=== PATIENT | male | born 1965 | race Two or more races ===

== ENCOUNTER 2020-01-11 18:09 | Emergency (ER) | payer SELFPAY ==
[~2020-01-11] VITALS: Ht 152.4 cm; Wt 68.0 kg
[2020-01-11 18:20] VITALS: BP 144/84
[2020-01-11] MEDS ORDERED: Tetanus/Diptheria/Pertussis IM ONE (18:30)
[2020-01-11] MEDS ORDERED: Lidocaine 1% 10mg/ml/EPI 0.01mg/ml 30ml INJ ONE (18:30)
--- NOTE | 2020-01-11 18:36 | Emergency Room Report ---
History of Present Illness General Chief Complaint: Laceration Source: Patient Present Illness HPI 54-year-old male with no past medical history presents with a laceration to his right hand 1 hour prior to arrival. 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 There was immediate bleeding which he applied pressure to. Patient is right-hand dominant. Unknown last tetanus shot. No other injuries. 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: No Patient History Past Medical History: see triage record Reviewed Nursing Documentation: PMH: Agreed; PSxH: Agreed Nursing Documentation-PMH Past Medical History: No Stated History Review of Systems All Other Systems: negative except mentioned in HPI Physical Exam Vital Signs Date Time Temp Pulse Resp B/P (MAP) Pulse Ox O2 Delivery O2 Flow Rate FiO2 01/11/20 18:18 98.8 119 18 144/84 (104) 99 Room Air Sp02 EP Interpretation: reviewed, normal General Appearance: normal inspection, well appearing, no apparent distress, alert, GCS 15, non-toxic ENT: EOM grossly intact, normal pharynx, normal voice, TMs + canals normal, uvula midline Neck: normal inspection, full range of motion, supple, thyroid normal, no meningismus, no bony tend Respiratory: chest non-tender, lungs clear, normal breath sounds, no respiratory distress Cardiovascular #1: normal peripheral pulses, regular rate, rhythm Cardiovascular #2: 2+ radial (R), 2+ radial (L) Musculoskeletal: normal inspection, normal range of motion, gait/station normal , non-tender Neurologic: alert, motor strength/tone normal, boat joiner III-XII nml as tested, oriented x3, sensory intact, speech normal Psychiatric: judgement/insight normal, mood/affect normal Skin: other - 2.5 cm laceration to the ulnar aspect of the right hand. Adipose tissue visualized. No bone or foreign body visualized. Motor intact. Sensation intact. Pulses intact. Bleeding controlled. Lymphatic: no adenopathy Procedures Laceration/Wound Repair Laceration/Wound Repair : Consent: Verbal Wound Location: upper extremity Wound's Depth, Shape: superficial Wound Length (cm): 2 Wound Explored: no foreign body removed Irrigated w/ Saline (ccs): 20 Betadine Prep?: Yes Anesthesia: Lidocaine w/ Epi Volume Anesthetic (ccs): 4 Wound Debrided: None Wound Repaired With: sutures Suture Size/Type: 5:0, proline Number of Sutures: 8 Sterile Dressing Applied?: Yes Splint Applied?: No Patient Tolerated: Well Complications: None Medical Decision Making PA Attestation Dr. Ch is my supervising physician whom patient management and care has been discussed with. Diagnostic Impression: Primary Impression: Laceration ER Course Pt. presents to the ED c/o laceration to the right hand prior to arrival. Ddx considered but are not limited to laceration, foreign body, fracture. Vital signs: are WNL, pt. is afebrile H&PE are most consistent with superficial laceration ORDERS: Right hand x-ray shows no fracture or foreign body ED INTERVENTIONS: Tetanus shot given. Laceration repaired with no complications. DISCHARGE: At this time pt. is stable for d/c to home. Advised to return in 2 days for recheck and 2 weeks for suture removal. Will provide printed patient care instructions, and any necessary prescriptions. Advised to follow up outpatient in 1-2 days. Care plan and follow up instructions have been discussed with the patient prior to discharge. Other X-Ray Diagnostic Results Other X-Ray Diagnostic Results : X-Ray ordered: Right hand # of Views/Limited Vs Complete: 1 View Indication: Pain PA Xray: Interpretation reviewed, by supervising MD, and agrees with findings. Interpretation: no dislocation, no fractures, other - No foreign body. Impression: Other - No fracture or foreign body. Last Vital Signs Date Time Temp Pulse Resp B/P (MAP) Pulse Ox O2 Delivery O2 Flow Rate FiO2 01/11/20 18:18 98.8 119 18 144/84 (104) 99 Room Air Rosemary Gomez January 11, 2020 18:36
[2020-01-11 19:35] VITALS: BP 144/84
--- NOTE | 2020-01-12 10:16 | Diagnostic Imaging Report ---
EXAM: X-RAY XRAY Hand Complete R CLINICAL HISTORY: Trauma with hand pain. COMPARISON: None FINDINGS: Total of 3 views of the right hand were obtained. Alignment is anatomic. There is no fracture, bony lesions or erosions. Joint spaces are unremarkable. Surrounding soft tissue is normal. IMPRESSION: NO FRACTURE.
== END 2020-01-11 19:35 | disposition home or self-care (01) ==
LOC: EMR 18:59
DX: S61.411A Laceration without foreign body of right hand, initial encounter (principal); W26.0XXA Contact with knife, initial encounter; Y93.89 Activity, other specified; Y92.810 Car as the place of occurrence of the external cause
CPT/HCPCS: 90471; 90715; 99283

== ENCOUNTER 2020-01-14 13:54 | Emergency (ER) | payer SELFPAY ==
[~2020-01-14] VITALS: Ht 160 cm; Wt 68.0 kg
--- NOTE | 2020-01-14 14:12 | NUR ---
ED Nurse Note: pt presents to ED asking for evaluation of R hand sutures. pt states that sutures were placed 4 days ago for a lac repair and pt was told to return in 3 days for re-evaluation.
[2020-01-14 14:13] VITALS: BP 132/79
[2020-01-14] MEDS ORDERED: CEPHALEXIN500 MG ORAL (14:32)
[2020-01-14] MEDS ORDERED: BACITRACIN15 GM TOPIC (14:32)
[2020-01-14 14:44] VITALS: BP 132/79
--- NOTE | 2020-01-14 14:44 | NUR ---
ER DISCHARGE NOTE: Patient is cleared to be discharged per ERMD, pt is aox4, on room air, with stable vital signs. pt was given dc and prescription instructions, pt was able to verbalize understanding, pt id band removed without complications. pt is able to ambulate with steady gait. pt took all belongings.
--- NOTE | 2020-01-14 14:46 | Emergency Room Report ---
History of Present Illness General Chief Complaint: Wound Recheck/Suture Removal Source: Patient Present Illness HPI 54-year-old male presents to the emergency department for wound recheck status post suture placement. Patient sustained a laceration to the lateral aspect of the right hand 3 days ago. Patient denies increase in pain he reports some mild erythema. Patient denies fever chills. Patient reports that he was not prescribed any antibiotics upon discharge. Patient states he did receive his tetanus vaccination. He denies additional trauma or bleeding. He denies discharge. No other aggravating or relieving factors at this time. Allergies: Coded Allergies: No Known Allergies (Unverified , 01/11/20) COVID-19 Screening Contact w/high risk pt: No Recent Travel to affected area: No Experienced COVID-19 symptoms?: No COVID-19 Testing performed ANALYTICS SPECIALIST: No Patient History Past Medical History: see triage record Past Surgical History: none Pertinent Family History: none Immunizations: UTD Reviewed Nursing Documentation: PMH: Agreed; PSxH: Agreed Nursing Documentation-PMH Past Medical History: No Stated History Review of Systems All Other Systems: negative except mentioned in HPI Physical Exam Vital Signs Date Time Temp Pulse Resp B/P (MAP) Pulse Ox O2 Delivery O2 Flow Rate FiO2 01/14/20 14:08 97.9 98 18 132/79 (96) 99 Room Air Sp02 EP Interpretation: reviewed, normal General Appearance: well appearing, no apparent distress, alert, GCS 15, non- toxic Head: normocephalic, atraumatic Eyes: bilateral eye normal inspection, bilateral eye PERRL ENT: hearing grossly normal, normal voice Neck: full range of motion Respiratory: lungs clear, normal breath sounds, speaking full sentences Cardiovascular #1: regular rate, rhythm, normal capillary refill Musculoskeletal: normal range of motion, gait/station normal, non-tender Neurologic: alert, motor strength/tone normal, oriented x3, sensory intact, responsive, speech normal Psychiatric: judgement/insight normal Skin: no rash, wd healing/no infection noted - healing previously repaired 2cm Right hand laceration- mild erythema Medical Decision Making PA Attestation Dr. Velasquez is my supervising Physician whom patient management has been discussed with. Diagnostic Impression: Primary Impression: Encounter for wound re-check ER Course 54-year-old male presents to the emergency department for wound recheck status post suture placement. Patient sustained a laceration to the lateral aspect of the right hand 3 days ago. Patient denies increase in pain he reports some mild erythema. Patient denies fever chills. Patient reports that he was not prescribed any antibiotics upon discharge. Patient states he did receive his tetanus vaccination. He denies additional trauma or bleeding. He denies discharge. No other aggravating or relieving factors at this time. Ddx considered but are not limited to cellulitis, abscess, dehiscence Vital signs: are WNL, pt. is afebrile H&PE are most consistent with healing previously repaired 2cm Right hand laceration ORDERS: none required at this time, the diagnosis is clinical ED INTERVENTIONS: -wound examined -Sterile dressing applied. d/w pt. to begin taking po abx and to look for signs of infection . DISCHARGE: At this time pt. is stable for d/c to home. Will provide printed patient care instructions, and any necessary prescriptions. Care plan and follow up instructions have been discussed with the patient prior to discharge. Last Vital Signs Date Time Temp Pulse Resp B/P (MAP) Pulse Ox O2 Delivery O2 Flow Rate FiO2 01/14/20 14:13 89 18 132/79 99 Room Air 01/14/20 14:08 97.9 Disposition: HOME, SELF-CARE Condition: Stable Scripts Bacitracin (Bacitracin) 28.4 Gm Oint...g. 1 APPLIC TOPIC THREE TIMES A DAY, #28.4 GM Prov: Seema Rader 01/14/20 Cephalexin* (KEFLEX*) 500 Mg Capsule 500 MG ORAL EVERY 12 HOURS for 7 Days, #14 CAP 0 Refills Prov: Seema Rader 01/14/20 Referrals: Anne Marie Boggs [facility] + [facility] - Peds ER - Patient Instructions: Wound Check Additional Instructions: regresar en 14 epstein para quitar los puntos. Si tiene un doctor primario, va enrique doctor primario. regresar pronto si tiene termeratura, valeriy, mas dolor. Take medications as directed. Follow up with a Primary Care Provider in 3-5 days, even if your symptoms have resolved. --Please review list of primary care clinics, if you do not already have a primary care provider Return sooner to ED if new symptoms occur, or current symptoms become worse. - Please note that this Emergency Department Report was dictated using [employer] hydrographic technology software, occasionally this can lead to erroneous entry secondary to interpretation by the dictation equipment. Seema Rader January 14, 2020 14:46
== END 2020-01-14 15:00 | disposition home or self-care (01) ==
LOC: EMR 15:00
DX: S61.411A Laceration without foreign body of right hand, initial encounter (principal); X58.XXXA Exposure to other specified factors, initial encounter; Y92.9 Unspecified place or not applicable
CPT/HCPCS: 99282

== ENCOUNTER 2020-01-30 12:47 | Emergency (ER) | payer SELFPAY ==
[~2020-01-30] VITALS: Ht 167.6 cm; Wt 72.6 kg
[~2020-01-30 12:47] MED LIST: BACITRACIN15 GM TOPIC; CEPHALEXIN500 MG ORAL
--- NOTE | 2020-01-30 13:10 | NUR ---
ED Nurse Note: Patient walked in to ER from home due to sutures removal.
--- NOTE | 2020-01-30 13:31 | Emergency Room Report ---
History of Present Illness General Chief Complaint: Wound Recheck/Suture Removal Source: Patient Present Illness HPI 54-year-old male with no symptom past medical history here requesting suture removal. Sutures were placed in 2 weeks ago at [place] [facility]. Denies any pus drainage, new onset injury. Reports that he has been having some tingling since this happened however has not follow-up primary doctor yet. Patient was advised to follow with primary doctor in this regard. 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: No Patient History Past Medical History: see triage record Past Surgical History: none Pertinent Family History: none Immunizations: UTD Reviewed Nursing Documentation: PMH: Agreed; PSxH: Agreed Nursing Documentation-PMH Past Medical History: No Stated History Review of Systems All Other Systems: negative except mentioned in HPI Physical Exam Vital Signs Date Time Temp Pulse Resp B/P (MAP) Pulse Ox O2 Delivery O2 Flow Rate FiO2 01/30/20 13:02 98.4 71 17 119/81 (94) 99 Room Air Sp02 EP Interpretation: reviewed, normal General Appearance: well appearing, no apparent distress Head: normocephalic, atraumatic ENT: hearing grossly normal, normal voice Neck: full range of motion, supple Respiratory: no rhonchi, no respiratory distress, speaking full sentences Cardiovascular #1: no edema, no gallop Cardiovascular #2: 2+ radial (R), 2+ radial (L) Gastrointestinal: non tender, soft Genitourinary: no CVA tenderness Musculoskeletal: gait/station normal Neurologic: alert, normal gait Psychiatric: mood/affect normal Skin: laceration - Repair lack left palm Lymphatic: no adenopathy Procedures Additional Procedure Procedure Narrative 8 sutures were removed from left palm Medical Decision Making PA Attestation All my diagnosis and treatment plans were reviewed ad discussed with my supervising physician Dr. Corona Diagnostic Impression: Primary Impression: Encounter for dressing change or suture removal ER Course 54-year-old male with no symptom past medical history here requesting suture removal. Sutures were placed in 2 weeks ago at [place] [facility]. Denies any pus drainage, new onset injury. Reports that he has been having some tingling since this happened however has not follow-up primary doctor yet. Patient was advised to follow with primary doctor in this regard. Ddx considered but are not limited to : Superficial laceration, deep laceration , tendon involvement with laceration, laceration with foreign body Vital signs: are WNL, pt. is afebrile H&PE are most consistent with: Suture removal ORDERS: None ED INTERVENTIONS: 8 sutures were removed and Steri-Strips applied DISCHARGE: At this time pt. is stable for d/c to home. Will provide printed patient care instructions, and any necessary prescriptions. Care plan and follow up instructions have been discussed with the patient prior to discharge. Patient follow primary doctor Last Vital Signs Date Time Temp Pulse Resp B/P (MAP) Pulse Ox O2 Delivery O2 Flow Rate FiO2 01/30/20 13:02 98.4 71 17 119/81 (94) 99 Room Air Disposition: HOME, SELF-CARE Condition: Stable Scripts Mupirocin* (MUPIROCIN*) 22 Gm Oint...g. 1 APPLIC TOPIC THREE TIMES A DAY, #22 GM Prov: Noe Gan 01/30/20 Referrals: NOT CHOSEN IPA/,REFERRING (PCP) Patient Instructions: Suture Removal, Care After Additional Instructions: Take medication as directed, follow primary doctor, if worsening symptoms return to the emergency room Noe Gan Jan 30, 2020 13:31
[2020-01-30] MEDS ORDERED: MUPIROCIN22 GM TOPIC (13:32)
[2020-01-30 13:37] VITALS: BP 119/81
[2020-01-30 13:42] VITALS: BP 119/81
--- NOTE | 2020-01-30 13:43 | NUR ---
ED Nurse Note: Pt cleared by health care Provider for discharge. DC instructions/prescription was given and explained to pt and verbalized understanding of teachings. All medical deviecs such as ID band removed. Pt is AAO x4, ambulatory and left with all personal belongings.
== END 2020-01-30 13:42 | disposition home or self-care (01) ==
LOC: EMR 13:22
DX: Z48.02 Encounter for removal of sutures (principal)
CPT/HCPCS: 99281